=== PATIENT | female | born 1960 | race Caucasian/White ===

== ENCOUNTER 2023-02-27 19:39 | Emergency (ER) | payer MEDICAID ==
[~2023-02-27] VITALS: Ht 157.5 cm; Wt 72.6 kg
[2023-02-27 19:56] VITALS: BP_SYST 149; PULSE 86; RESP 16; TEMP 98.1; O2SAT 97
[2023-02-27] MEDS ORDERED: cephALEXin 500 MG CAPSULE PO ONE (20:15)
[2023-02-27] MEDS ORDERED: KETOROLAC TROMETHAMINE 30 MG VIAL IM ONE (20:15)
[2023-02-27] MEDS ORDERED: CEPH-548 PO (20:26)
[2023-02-27] MEDS ORDERED: IBUP-1969 PO (20:26)
[2023-02-27 20:33] VITALS: BP_SYST 144; PULSE 84; RESP 16; TEMP 98.1; O2SAT 97
== END 2023-02-27 20:33 | disposition home or self-care (01) ==
LOC: SED 19:39
DX: L60.0 Ingrowing nail (principal); M79.675 Pain in left toe(s); E11.9 Type 2 diabetes mellitus without complications
CPT/HCPCS: 99283; 96372; J1885